=== PATIENT | female | born 1960 | race Caucasian/White ===

== ENCOUNTER → 2024-09-04 | Outpatient (CLI) | payer BC, SELFPAY ==
[2024-09-04 16:48] LABS: Glucose,Fasting 96 mg/dL (74-106)
== END | disposition home or self-care (01) ==
LOC: COPL 14:41
PROVIDERS: PCP Family Medicine; Referring Provider Ophthalmology; Visit Provider Ophthalmology
DX: Z01.818 Encounter for other preprocedural examination (principal)
CPT/HCPCS: 36415; 82947

== ENCOUNTER → 2024-09-28 | Outpatient (CLI) | payer BC, SELFPAY ==
[2024-09-28 16:22] LABS: Collection Type, Urine Clean Catch
[2024-09-28 17:51] LABS: Bilirubin,Urine Negative (Negative); Blood,Urine Trace (Negative); Clarity,Urine Clear (Clear/Hazy); Color,Urine Colorless (Lt Yel-Yel); Glucose, Urine Negative (Negative); Ketones,Urine Negative (Negative); Leukocyte Esterase,Urine Negative (Negative); Nitrite,Urine Negative (Negative); Protein,Urine Negative (Neg - Trace); RBC,Urine < 1 /hpf (0-3); Specific Gravity,Urine 1.006 (1.001-1.035); Squamous Epithelial Cell,Urine 1 /hpf (0-5); Urobilinogen,Urine Negative mg/dL (0.0-1.0); WBC,Urine 1 /hpf (0-5)
== END | disposition home or self-care (01) ==
LOC: SLDO 15:47
PROVIDERS: PCP Nurse Practitioner Family; Referring Provider Nurse Practitioner Family; Visit Provider Nurse Practitioner Family
DX: N39.0 Urinary tract infection, site not specified (principal)
CPT/HCPCS: 81001; 87086

== ENCOUNTER 2024-09-29 13:21 | Emergency (ER) | payer BC, SELFPAY ==
[2024-09-29 14:15] VITALS: BP 151/78; PULSE 81; RESP 19; TEMP 36.3; O2SAT 98; BMI 31.7
--- NOTE | 2024-09-29 14:23 | EKG_ITS ---
[facility] Test Date: 2024-09-29 Pat Name: NERY GALARZA Department: Room: - Gender: Female It Director: : 1960 Requested By: Fernando Dixon Order Number: [id number] Reading MD: Fernando Dixon Measurements Intervals [place] Rate: 75 P: 68 WV: 148 QRS: 12 QRSD: 70 T: 59 QT: 376 QTc: 421 Interpretive Statements SINUS RHYTHM SEPTAL MYOCARDIAL INFARCTION , PROBABLY OLD [40+ ms Q WAVE IN V1/V2] Compared to ECG 07/21/2022 11:54:33 No significant changes /store/S0/[id number].pdf
--- NOTE | 2024-09-29 14:24 | XR_ITS ---
Examination: CT abdomen with intravenous contrast CT pelvis with intravenous contrast 2-D coronal reconstructions 2-D sagittal reconstructions Date and time of exam:September 29, 2024 1711 hrs. Comparison February 12, 2022 Indications: Right lower abdominal pain today. CTDI: vol (mGy) 12.8 DLP: (mGycm) 743 Technique: Multiple axial sections of the abdomen and pelvis have been obtained. 64 slice high-resolution scanner used. 3 mm axial sections have been obtained, post intravenous injection 60 cc [id number] 2-D sagittal, coronal reconstructions obtained. Low dose protocols were performed. One or more of the following dose reduction techniques were used; automated exposure control, adjustment of the mA and/or KV according to patient size, use of iterative reconstruction technique. Findings: No focal liver or splenic lesions No gallstones No pancreatic mass Aorta normal size Moderate hydronephrosis right hydroureter secondary to 7 mm, 5 mm right ureterovesical junction calculi Minimal left hydronephrosis Aorta normal size Normal appendix No bowel obstruction No diverticulitis Retroverted uterus No adnexal mass No bladder mass Lumbar fusion L2-L5 with satisfactory alignment Impression: Moderate right hydronephrosis secondary to 7 mm and 5 mm distal right ureterovesical junction calculus
--- NOTE | 2024-09-29 14:25 | PD.EDABDPN ---
ED Abdominal Pain RME/HPI General Chief Complaint: Abdominal Pain Stated complaint: Abdominal pain X 3 days, vomiting today Time seen by provider: 09/29/24 13:24 Arrival date/time: 09/29/24 13:21 RME / HPI RME / HPI narrative: 63-year-old female patient with significant history of hypertension diabetes mellitus, came in for evaluation regarding right lower quadrant pain. Onset of symptoms for the last 2 days as sudden onset of right lower quadrant pain, associated with nausea and vomiting,. Patient denies any diarrhea or constipation. Denies any dysuria. Patient was seen by PCP, and was given Macrobid for possible UTI. Was also given Hawthorne which the patient took and only afforded mild relief. Denies any other complaints. Related Data Home Medications ?Medication ?Instructions ?Recorded ?Confirmed alprazolam 0.5 mg tablet (Xanax) 0.5 mg PO QDAY 03/20/22 03/20/22 amlodipine 5 mg tablet 1 tab PO DAILY 03/20/22 03/20/22 clonazepam 0.5 mg tablet 10 mg PO QDAY 03/20/22 03/20/22 conj estrogen-medroxyprogesterone 1 tab PO QDAY 03/20/22 03/20/22 0.45 mg-1.5 mg tablet (Prempro) diphenhydramine HCl 25 mg capsule 25 mg PO DAILY 03/20/22 03/20/22 (Benadryl) duloxetine 60 mg capsule,delayed 60 mg PO QDAY 03/20/22 03/20/22 release (Cymbalta) fluticasone propionate 50 50 mcg intranasal DAILY 03/20/22 03/20/22 mcg/actuation nasal spray,suspension ibuprofen 800 mg tablet 800 mg PO Q8H PRN Pain 03/20/22 03/20/22 levothyroxine 50 mcg tablet 50 mcg PO QDAY 03/20/22 03/20/22 metformin 500 mg tablet 500 mg PO QDAY 03/20/22 03/20/22 metoprolol succinate 50 mg 50 mg PO QDAY 03/20/22 03/20/22 tablet,extended release 24 hr omeprazole 20 mg delayed 20 mg PO QDAY 03/20/22 03/20/22 release,disintegrating tablet semaglutide 1 mg/dose (2 mg/1.5 1 mg subcut QWEEK 03/20/22 03/20/22 mL) subcutaneous pen injector (Ozempic) simvastatin 20 mg tablet 20 mg PO QDAY 03/20/22 03/20/22 telmisartan 80 mg tablet 80 mg PO QDAY 03/20/22 03/20/22 tramadol 50 mg tablet 50 mg PO QDAY 03/20/22 03/20/22 Previous Rx's ?Medication ?Instructions ?Recorded ketorolac 10 mg tablet 10 mg PO Q6H PRN pain 5 days #20 09/29/24 tabs tamsulosin 0.4 mg capsule (Flomax) 0.4 mg PO QDAY #14 caps 09/29/24 Allergies Allergy/AdvReac Type Severity Reaction Status Date / Time Penicillins Allergy Severe RASH / Verified 09/29/24 13:27 SWELLING Review of Systems Review of Systems Narrative Review of Systems: Review of system reviewed and within normal limits except mentioned in HPI ED Exam Narrative Physical exam: VITAL SIGNS: Reviewed. GENERAL APPEARANCE: Alert and interactive, follows commands, no acute distress, HEAD AND FACE: Non-traumatic. ENT: PERRL, pink conjunctivitis, eyelid no trauma, Mucous membrane moist. NECK: Supple, nontender, no nuchal rigidity. CHEST: No tenderness, no crepitus, no paradoxical movement, no retractions. LUNGS: Clear, well ventilated, symmetric, no rales, no wheezing, no ronchi, no stridor, good breath sounds bilaterally. HEART: Regular rate, regular rhythm, no murmur, no gallops. ABDOMEN: Soft, positive bowel sounds, nondistended, no guarding, right lower quadrant tenderness, no rebound, no masses, RECTAL: Deferred. GENITAL: Deferred. NEUROLOGICAL: Gross motor function intact sensory function intact, Appropriate for age. MUSCULOSKELETAL: low back nontender, full range of motion. EXTREMITIES: Nontender, full range of motion. SKIN: Color pink, dry, no rash, no lacerations, no abrasions, no contusions. LYMPHATICS: Deferred. Course Quality Measures none Orders Category Date Time Status CT Screening NOW Care 09/29/24 14:24 Active EKG (ED ONLY) *Do not use* NOW Care 09/29/24 14:[address] abdomen pelvis w con Stat Exams 09/29/24 14:24 Completed EKG (ED Only) Stat Exams 09/29/24 14:23 Draft CBC Stat Lab 09/29/24 15:55 Completed Comprehensive Metabolic Panel Stat Lab 09/29/24 15:55 Completed Lipase Stat Lab 09/29/24 15:55 Completed Partial Thromboplastin Time Stat Lab 09/29/24 15:55 Completed Prothrombin Time with INR Stat Lab 09/29/24 15:55 Completed UA [Urinalysis] Stat Lab 09/29/24 14:28 Completed Ketorolac Inj [Toradol Inj] Med 09/29/24 17:38 Discontinued 30 mg IVP X1 ONE Ketorolac Inj [Toradol Inj] Med 09/29/24 19:04 Discontinued 30 mg IVP X1 ONE Morphine Inj Med 09/29/24 14:23 Discontinued 4 mg IVP X1 ONE Ondansetron Inj [Zofran Inj] Med 09/29/24 14:23 Discontinued 4 mg IV X1 ONE Sodium Chloride 0.9% 1000 ml [Ns] 1,000 ml Med 09/29/24 14:24 Discontinued IV 999 mls/hr Sodium Chloride 0.9% 1000 ml [Ns] 1,000 ml Med 09/29/24 18:51 Active IV 999 mls/hr Vital Signs Vital signs: Vital Signs Temperature 97.4 F 09/29/24 14:15 Pulse Rate 81 09/29/24 14:15 Respiratory Rate 19 09/29/24 14:15 Blood Pressure 151/78 H 09/29/24 14:15 Pulse Oximetry (%) 98 09/29/24 14:15 Oxygen Delivery Method Room Air 09/29/24 14:15 Abdominal Pain MDM MDM Narrative MDM Narrative:: 63-year-old female patient with significant history of hypertension diabetes mellitus, came in for evaluation regarding right lower quadrant pain. Onset of symptoms for the last 2 days as sudden onset of right lower quadrant pain, associated with nausea and vomiting,. Patient denies any diarrhea or constipation. Denies any dysuria. Patient was seen by PCP, and was given Macrobid for possible UTI. Was also given Hawthorne which the patient took and only afforded mild relief. Denies any other complaints. Laboratory workup is significant for blood sugar 181, urinalysis no UTI except for hematuria., CBC no leukocytosis, creatinine is normal. CT scan of the abdomen pelvis showed Moderate right hydronephrosis secondary to 7 mm and 5 mm distal right ureterovesical junction calculus Results discussed with the patient and family, and plan of care discussed with them. Patient received 2 L of IV fluids, IV morphine and IV Toradol with complete resolution of symptoms. Patient is pain-free prior to discharge. Patient was advised to return to emergency room and close follow-up also with PCP for referral to urologist. Patient data External records reviewed:: None Clinical information provided by:: patient and family Social determinants that could affect healthcare access:: none Patient has the following chronic illnesses:: Hypertension How is presenting disease/condition affected by chronic disease/condition?: uneffected by Evaluation data The following diagnostics were reviewed and interpreted by me:: lab results and radiology exam(s) Lab and/or radiology exams considered but not ordered:: None Interpretation Summary: See results in MDM Medications / Prescriptions Medications or Prescriptions considered but not ordered:: None Medication administrations:: Medication Administration History Sodium Chloride (Ns) 1,000 mls @ 999 mls/hr IV .Q1H1M ONE Stop: 09/29/24 19:51 Last Admin: 09/29/24 18:54 Dose: 999 mls/hr Documented By: ED Discontinued Medications Sodium Chloride (Ns) 1,000 mls @ 999 mls/hr IV .Q1H1M ONE Stop: 09/29/24 15:24 Last Infusion: 09/29/24 17:10 Dose: Infused Documented By: Admin: 09/29/24 16:09 Dose: 999 mls/hr Documented By: Ketorolac Tromethamine (Ketorolac Inj 30 Mg/Ml Vial) 30 mg IVP X1 ONE Stop: 09/29/24 17:39 Last Admin: 09/29/24 18:40 Dose: 30 mg Documented By: ED Ketorolac Tromethamine (Ketorolac Inj 30 Mg/Ml Vial) 30 mg IVP X1 ONE Stop: 09/29/24 19:05 Morphine Sulfate (Morphine Sulf Inj 10 Mg/Ml Vial) 4 mg IVP X1 ONE Stop: 09/29/24 14:24 Last Admin: 09/29/24 16:57 Dose: 4 mg Documented By: ED Ondansetron HCl (Ondansetron Inj 2 Mg/Ml Inj 2 Ml) 4 mg IV X1 ONE; Protocol Stop: 09/29/24 14:24 Last Admin: 09/29/24 16:54 Dose: 4 mg Documented By: ED Morphine Zofran Toradol IV fluids Consultations Consultation(s) initiated? (list below): No Diagnosis Differential diagnosis abdominal pain: abdominal pain, acute appendicitis and calculus of kidney Most likely diagnosis given after review of the tests above:: Ureterolithiasis Admission Indicated Admission indicated?: not indicated Admission Request Was there a request for admission?: No Disposition Plan Disposition Plan: Discharge Discharge Attestation Discharge Attestation: The patient and all family members were given an opportunity to ask questions and understood the discharge instructions. Discharge instructions specifically effects, indications for sooner follow up or return to the emergency department, and the expected course of current diagnosis. Patient condition: Stable Discharge Plan Plan Patient Disposition: HOME (Self Care) Disposition Comment: Stable Prescriptions/Referrals Prescriptions/Med Rec: New ketorolac 10 mg tablet 10 mg PO Q6H PRN (Reason: pain) 5 Days Qty: 20 0RF tamsulosin [Flomax] 0.4 mg capsule 0.4 mg PO QDAY Qty: 14 0RF No Action metformin 500 mg Tablet 500 mg PO QDAY ibuprofen 800 mg Tablet 800 mg PO Q8H PRN (Reason: Pain) metoprolol succinate 50 mg Tablet Extended Release 24 Hr 50 mg PO QDAY clonazepam 0.5 mg Tablet 10 mg PO QDAY amlodipine 5 mg tablet 1 tab PO DAILY tramadol 50 mg Tablet 50 mg PO QDAY alprazolam [Xanax] 0.5 mg Tablet 0.5 mg PO QDAY levothyroxine 50 mcg Tablet 50 mcg PO QDAY simvastatin 20 mg Tablet 20 mg PO QDAY diphenhydramine HCl [Benadryl] 25 mg Capsule 25 mg PO DAILY telmisartan 80 mg Tablet 80 mg PO QDAY fluticasone propionate 50 mcg/actuation spray,suspension 50 mcg INTRANASAL DAILY Prempro 0.45-1.5 mg Tablet 1 tab PO QDAY duloxetine [Cymbalta] 60 mg Capsule,Delayed Release(Dr/Ec) 60 mg PO QDAY Ozempic 1 mg/dose (2 mg/1.5 mL) Pen Injector 1 mg SUBCUT QWEEK omeprazole 20 mg Tablet,Disintegrat, Delay Rel 20 mg PO QDAY Problem List Clinical Impression: Ureterolithiasis Patient/Caregiver Discharge Instructions Discharge Activity: activity as tolerated Education Materials: ED Kidney Stone w/ Colic Additional Instructions: Thank you for the opportunity for serving you today. You are stable for discharged . You are advised to: Follow-up with your PCP in 1 to 2 days and asked for referral to urologist Return to ED for worsening of symptoms Increase oral fluids Take medication as prescribed Print Language: French Stand Alone Forms: Kaylyn Award Info., Patient Portal Info Letter PA/FUNERAL COUNSELOR Supervising Physician PA/MICHELLE Supervising Physician: MD franny
[2024-09-29 14:39] LABS: Collection Type, Urine Clean Catch
[2024-09-29 14:54] LABS: Bilirubin,Urine Negative (Negative); Blood,Urine 3+ (Negative); Calcium Oxalate Crystals,Urine 2+; Clarity,Urine Turbid (Clear/Hazy); Color,Urine Yellow (Lt Yel-Yel); Glucose, Urine Trace (Negative); Hyaline Casts,Urine 4 /hpf (0-1); Ketones,Urine 1+ (Negative); Leukocyte Esterase,Urine Negative (Negative); Nitrite,Urine Negative (Negative); PH,Urine 5.5 (5.0-7.0); Protein,Urine 1+ (Neg - Trace); RBC,Urine 122 /hpf (0-3); Specific Gravity,Urine 1.026 (1.001-1.035); Squamous Epithelial Cell,Urine 5 /hpf (0-5); Urobilinogen,Urine Negative mg/dL (0.0-1.0); WBC,Urine 7 /hpf (0-5)
[2024-09-29] MEDS: SODIUM CHLORIDE 0.9% 1000 ML 1,000 ML 999 ML IV ×2 (16:09→18:54)
[2024-09-29 16:26] LABS: Partial Thromboplastin Time 23.4 Seconds (22.0-36.0); Prothrombin Time 10.8 Seconds (9.0-12.2)
[2024-09-29 16:31] LABS: Basophils % (Auto) 0 % (0-2.5); Eosinophils % (Auto) 0 % (0-10); Hematocrit 38.9 % (36.0-46.0); Hemoglobin 14.2 g/dL (12.0-16.0); Immature Granulocytes % (Auto) 0 % (0-0); Immature Granulocytes Auto 0.04 Thou/mm3 (0.00-0.00); Lymphocytes # (Auto) 0.8 Thou/mm3 (1.0-4.8); Lymphocytes % (Auto) 7 % (10-50); Mean Corpuscular HGB Conc 36.5 g/dl (31.0-37.0); Mean Corpuscular Hemoglobin 31.2 pg (25.0-35.0); Mean Corpuscular Volume 86 fL (80-100); Monocytes # (Auto) 0.5 Thou/mm3 (0.0-0.8); Monocytes % (Auto) 5 % (0-12); Neutrophils # (Auto) 9.5 Thou/mm3 (1.8-7.7); Neutrophils % (Auto) 88 % (37-80); Nucleated Red Blood Cell % 0 /100 WBC (0); Platelet Count 303 Thou/mm3 (140-440); RDW Standard Deviation 40.1 fL (36.4-46.3); Red Blood Count 4.55 Miln/mm3 (4.00-5.20); White Blood Count 10.9 Thou/mm3 (3.6-11.0)
[2024-09-29 16:49] LABS: Alanine Aminotransferase 14 U/L (10-49); Albumin, Serum 4.8 gm/dL (3.4-4.8); Albumin/Globulin Ratio 2.1 (1.2-2.2); Alkaline Phosphatase 80 U/L (46-116); Anion Gap 12 (7-16); Aspartate Amino Transferase 14 U/L (0-34); BUN/Creatinine Ratio 18 Ratio (12-20); Bilirubin,Total 0.6 mg/dL (0.3-1.2); Blood Urea Nitrogen 14 mg/dL (9-23); Calcium 10.2 mg/dL (8.3-10.6); Calcium (Corrected) 10.2 mg/dL (8.5-10.1); Carbon Dioxide 22.1 mMol/L (20.0-31.0); Chloride 106 mMol/L (98-107); Creatinine (Component) 0.8 mg/dL (0.6-1.3); Estimated Creatinine Clearance 86.7 mL/min (>60); Globulin 2.3 gm/dL (2.3-3.5); Glucose 181 mg/dL (74-106); Lipase 34 U/L (12-53); Osmolality,Calculated 284 (275-295); Potassium 3.4 mMol/L (3.4-5.1); Sodium 140 mMol/L (136-145); Total Protein 7.1 gm/dL (5.7-8.2); eGFR > 60 See Note
[2024-09-29] MEDS: ONDANSETRON INJ 2 MG/ML INJ 2 ML 4 MG IV (16:54)
[2024-09-29] MEDS: MORPHINE SULF INJ 10 MG/ML VIAL 4 MG IVP (16:57)
[2024-09-29] MEDS: KETOROLAC INJ 30 MG/ML VIAL IVP ×2 (18:40→19:43)
[2024-09-29 19:51] VITALS: PULSE 78; RESP 16; TEMP 36.6; O2SAT 99
== END 2024-09-29 19:53 | disposition home or self-care (01) ==
PROVIDERS: Nurse Practitioner Family; Emergency Provider Emergency Medicine; PCP Family Medicine
DX: N13.2 Hydronephrosis with renal and ureteral calculous obstruction (principal); I10 Essential (primary) hypertension; R94.31 Abnormal electrocardiogram [ECG] [EKG]
CPT/HCPCS: 36415; 74177; 80053; 81001; 83690; 85025; 85610; 85730; 87634; 93005; 96360; 96361; 96374; 96375; 96376; 99285; A4649; J1885; J2270; J2405; J7030; Q9967

== ENCOUNTER → 2025-05-09 | Outpatient (CLI) | payer BC, SELFPAY ==
[2025-05-09 09:26] LABS: Basophils # (Auto) 0.1 Thou/mm3 (0.0-0.2); Basophils % (Auto) 1 % (0-2.5); Eosinophils # (Auto) 0.6 Thou/mm3 (0.0-0.5); Eosinophils % (Auto) 12 % (0-10); Hematocrit 38.1 % (36.0-46.0); Hemoglobin 13.5 g/dL (12.0-16.0); Immature Granulocytes Auto 0.01 Thou/mm3 (0.00-0.00); Lymphocytes # (Auto) 2.1 Thou/mm3 (1.0-4.8); Lymphocytes % (Auto) 39 % (10-50); Mean Corpuscular HGB Conc 35.4 g/dl (31.0-37.0); Mean Corpuscular Hemoglobin 31.6 pg (25.0-35.0); Mean Corpuscular Volume 89 fL (80-100); Monocytes # (Auto) 0.5 Thou/mm3 (0.0-0.8); Monocytes % (Auto) 9 % (0-12); Neutrophils # (Auto) 2.2 Thou/mm3 (1.8-7.7); Neutrophils % (Auto) 40 % (37-80); Nucleated Red Blood Cell # 0.00 Thou/mm3 (0.00-0.00); Nucleated Red Blood Cell % 0 /100 WBC (0); Platelet Count 261 Thou/mm3 (140-440); RDW Standard Deviation 43.4 fL (36.4-46.3); Red Blood Count 4.27 Miln/mm3 (4.00-5.20); White Blood Count 5.5 Thou/mm3 (3.6-11.0)
[2025-05-09 09:38] LABS: Glucose Estimated Average 108 mg/dL (80-131); Hemoglobin A1C 5.4 % Hgb (4.8-6.0)
--- NOTE | 2025-05-09 09:38 | XR_ITS ---
Examination: Knee, left , 3 views Technique: Knee AP, lateral, oblique 3 views Date and time of exam: May 09, 2025, 0950 hours INDICATIONS: Left knee pain 20 years FINDINGS: Significant osteopenia. Advanced tricompartment osteoarthritis. No fracture or dislocation IMPRESSION: Advanced left knee tricompartment osteoarthritis
[2025-05-09 09:50] LABS: T4 (Thyroxine) 8.4 mcg/dL (4.5-10.9)
[2025-05-09 09:56] LABS: Alanine Aminotransferase 9 U/L (10-49); Albumin, Serum 4.3 gm/dL (3.4-4.8); Albumin/Globulin Ratio 2.3 (1.2-2.2); Alkaline Phosphatase 64 U/L (46-116); Anion Gap 9 (7-16); Aspartate Amino Transferase 15 U/L (0-34); BUN/Creatinine Ratio 14 Ratio (12-20); Bilirubin,Total 0.8 mg/dL (0.3-1.2); Blood Urea Nitrogen 11 mg/dL (9-23); Calcium 10.1 mg/dL (8.3-10.6); Calcium (Corrected) 10.1 mg/dL (8.5-10.1); Carbon Dioxide 26.5 mMol/L (20.0-31.0); Cardiac Risk Estimate 2.5 RATIO (3.7-5.6); Chloride 107 mMol/L (98-107); Cholesterol 147 mg/dL (132-200); Creatinine (Component) 0.8 mg/dL (0.6-1.3); Globulin 1.9 gm/dL (2.3-3.5); Glucose 105 mg/dL (74-106); HDL Cholesterol 60 mg/dL (40-60); LDL Cholesterol,Calculated 66 mg/dL (0-130); Osmolality,Calculated 282 (275-295); Potassium 3.5 mMol/L (3.4-5.1); Sodium 142 mMol/L (136-145); Thyroid Stimulating Hormone 2.02 uIU/mL (0.55-4.78); Total Protein 6.2 gm/dL (5.7-8.2); Triglycerides 104 mg/dL (30-150); eGFR > 60 See Note
== END | disposition home or self-care (01) ==
PROVIDERS: PCP Family Medicine; Referring Provider Family Medicine; Visit Provider Radiology Diagnostic Radiology
DX: M17.12 Unilateral primary osteoarthritis, left knee (principal); E11.65 Type 2 diabetes mellitus with hyperglycemia; N95.8 Other specified menopausal and perimenopausal disorders; I10 Essential (primary) hypertension; E03.9 Hypothyroidism, unspecified
CPT/HCPCS: 36415; 73562; 80053; 80061; 83036; 84436; 84443; 85025

== ENCOUNTER → 2025-05-17 | Outpatient (CLI) | payer BC, SELFPAY ==
--- NOTE | 2025-05-17 15:22 | XR_ITS ---
Examination: Breast ultrasound, unilateral, left complete Date and time of exam: May 17, 2025, 1539 hours INDICATIONS: Bloody left breast discharge 3 weeks, family history breast cancer Technique: Real-time cooper scale ultrasonographic imaging performed left breast including all 4 quadrants as well as nipple retroareolar and axillary region. Findings: 12:00 nodule circumscribed 4 x 4 millimeter 2:00 nodule circumscribed 8 x 7 mm 2:00 cyst 5 x 5 mm 5:00 nodule lobular margins 5 x 5 mm Dilated ducts IMPRESSION: BI-RADS Category 0: Incomplete: Need additional imaging evaluation Left breast ductogram follow-up recommended given the bloody discharge
--- NOTE | 2025-05-17 15:39 | XR_ITS ---
EXAMINATION: Cervical spine, 5 views Technique: Cervical spine AP, AP odontoid, lateral, bilateral obliques, 5 views Exam date and time: May 17, 2025, 1602 hours INDICATIONS: Neck pain years getting worse FINDINGS: Prominent osteopenia Advanced degenerative disc disease C5-C6, C6-C7 No cervical fracture Intact odontoid Mild to moderate bilateral neural foraminal stenosis C5-C6, C6-C7, worse on the left side IMPRESSION: Advanced degenerative disc disease C5-C6, C6-C7 with bilateral neural foraminal stenosis as above
== END | disposition home or self-care (01) ==
PROVIDERS: PCP Family Medicine; Referring Provider Family Medicine; Visit Provider Family Medicine
DX: M50.322 Other cervical disc degeneration at C5-C6 level (principal); M48.02 Spinal stenosis, cervical region; R92.8 Other abnormal and inconclusive findings on diagnostic imaging of breast
CPT/HCPCS: 72050; 76641

== ENCOUNTER → 2025-06-07 | Outpatient (CLI) | payer BC, SELFPAY ==
--- NOTE | 2025-06-07 08:30 | XR_ITS ---
EXAMINATION: Left breast ductogram Date and time: June 07, 2025, 0946 hours INDICATIONS: History bloody discharge beginning 2 weeks ago TECHNIQUE: Unsuccessful cannulation left breast ducts IMPRESSION: Unsuccessful cannulation left breast ducts If bloody discharge persists, recommend repeat attempt at ductogram
== END | disposition home or self-care (01) ==
LOC: CDIM 08:46
PROVIDERS: Referring Provider Family Medicine; Visit Provider Family Medicine
DX: N64.52 Nipple discharge (principal); Z53.8 Procedure and treatment not carried out for other reasons
CPT/HCPCS: 77053; Q9967

== ENCOUNTER → 2025-06-19 | Outpatient (CLI) | payer BC, SELFPAY ==
--- NOTE | 2025-06-19 14:15 | XR_ITS ---
Examination: Screening digital mammography, bilateral Computer aided detection 3-D breast Tomosynthesis, bilateral Date and time of exam: 06/19/2025, 2:44 p.m. Comparisons: July 2022 through May 2025 Indications: Screening, left bloody nipple discharge Technique: Nonmagnified MLO, CC views of the breasts to been obtained, reconstructed from 3-D Tomosynthesis images. R2 computer aided detection program utilized for evaluation of suspicious masses and/or abnormal calcifications. 3-D Tomosynthesis images obtained. Technologist: Findings: The breasts are heterogeneously dense, which may obscure small masses. No evidence of abnormal masses or suspicious calcifications. Impression: No focal abnormality seen screening exam. Left bloody nipple discharge warrants further evaluation. Bilateral contrast-enhanced breast MRI is recommended. BI-RADS category 0: Incomplete assassment; need additional imaging evaluation
== END | disposition home or self-care (01) ==
LOC: CDIM 14:26
PROVIDERS: Referring Provider Family Medicine; Visit Provider Family Medicine
DX: Z12.31 Encounter for screening mammogram for malignant neoplasm of breast (principal)
CPT/HCPCS: 77063; 77067

== ENCOUNTER 2025-07-03 08:35 | Outpatient (AMB) | payer BC, SELFPAY ==
[2025-07-03 08:49] VITALS: BP 110/74; PULSE 77; RESP 18; TEMP 36.4; O2SAT 98; BMI 30.2
--- NOTE | 2025-07-03 08:49 | PD.ORTHCLVIS ---
Vital signs 07/03/25 08:49 Height 1.73 m Height Method Measured Weight 90.038 kg Weight Measurement Method Standing Scale BMI 30.2 BP 110/74 Blood Pressure Source Automatic Cuff Blood Pressure Location Left Upper Arm Position Sitting Respiration 18 Pulse 77 Pulse Source Monitor Temp 97.6 F Temp Source Temporal Artery Scan Pulse Oximetry (%) 98 Oxygen Delivery Method Room Air Med/Allergies Allergies & Medications Allergies Penicillins Allergy (Severe, Verified 07/03/25 08:50) RASH / SWELLING Medication Reconciliation alprazolam 0.5 mg tablet (Xanax) 0.5 mg PO QDAY 03/20/22 [History Confirmed 07/03/25] amlodipine 5 mg tablet 1 tab PO DAILY 03/20/22 [History Confirmed 07/03/25] clonazepam 0.5 mg tablet 10 mg PO QDAY 03/20/22 [History Confirmed 07/03/25] conj estrogen-medroxyprogesterone 0.45 mg-1.5 mg tablet (Prempro) 1 tab PO QDAY 03/20/22 [History Confirmed 07/03/25] diphenhydramine HCl 25 mg capsule (Benadryl) 25 mg PO DAILY 03/20/22 [History Confirmed 07/03/25] duloxetine 60 mg capsule,delayed release (Cymbalta) 60 mg PO QDAY 03/20/22 [History Confirmed 07/03/25] fluticasone propionate 50 mcg/actuation nasal spray,suspension 50 mcg intranasal DAILY 03/20/22 [History Confirmed 07/03/25] ibuprofen 800 mg tablet 800 mg PO Q8H PRN Pain 03/20/22 [History Confirmed 07/03/25] metoprolol succinate 50 mg tablet,extended release 24 hr 50 mg PO QDAY 03/20/22 [History Confirmed 07/03/25] omeprazole 20 mg delayed release,disintegrating tablet 20 mg PO QDAY 03/20/22 [History Confirmed 07/03/25] semaglutide 1 mg/dose (2 mg/1.5 mL) subcutaneous pen injector (Ozempic) 1 mg subcut QWEEK 03/20/22 [History Confirmed 07/03/25] simvastatin 20 mg tablet 20 mg PO QDAY 03/20/22 [History Confirmed 07/03/25] telmisartan 80 mg tablet 80 mg PO QDAY 03/20/22 [History Confirmed 07/03/25] tramadol 50 mg tablet 50 mg PO QDAY 03/20/22 [History Confirmed 07/03/25] Exam Exam Patient is in no acute distress and is cooperative with the examination today. Breathing is nonlabored. Patient has a normal mood and affect. Bilateral extremities were evaluated and demonstrates sensation intact to light touch. Palpable pedal pulses are present. No significant edema is present. Bilateral hips were examined. The patient has no pain with log roll of the hips. Internal rotation to 30 degrees and external rotation to 30 degrees is painless. Negative FADIR. Right knee was examined today. The right knee is in reasonable alignment. Range of motion from 0-120 degrees. Knee is stable to varus and valgus as well as AP translation with <5mm. Patient has a negative McMurrays. There is no pain with patellofemoral compression and no crepitus noted. The knee is nontender to palpation. Left knee was examined today. The left knee is in varus alignment. Range of motion from 0-115 degrees. Knee is stable to varus and valgus as well as AP translation with <5mm. Patient has a negative McMurrays. There is no pain with patellofemoral compression and no crepitus noted. The knee is tender to palpation medially. X-rays of the left knee demonstrates complete joint space loss medially and osteophytes. These are nonweightbearing films Assessment and Plan Problem List (1) Arthritis of knee, left: Status: Acute Plan: ASSESSMENT AND PLAN 1. Left knee pain: The patient has a history of meniscus tear repairs and has been experiencing worsening pain over the past 8 months. Recent x-rays indicate severe [id number] arthritis in the left knee. She has not had recent injections or physical therapy within the last 8 months. Anti-inflammatory medications are still providing some relief. Treatment options discussed include continuing with current medications and injections or considering knee replacement surgery. A weightbearing x-ray of both knees will be ordered to assess the severity of the condition further. A weightbearing x-ray of both knees will be ordered to better assess the severity of the condition. Depending on the results, treatment options include continuing with current medications and injections or considering knee replacement surgery. The patient was informed that cortisone injections might be more predictable in advanced arthritis compared to gel injections. The risks and benefits of surgery versus conservative management were discussed. The patient will be scheduled for a follow-up appointment to review the x-ray results and make a more informed decision regarding her treatment plan. Follow-up: The patient will follow up after the x-rays are completed to discuss the next steps. Office Procedures GNS Level of Care Nursing/Assessment Patient Status: Initial/New Patient Nursing Assessment/Reassesment: Medication Reconciliation, Update PMH in EMR and Vital Signs Coordination of Care: Complex Care and Chronic Disease 1-5, Education Complex Pt/Fam, Consent,records obtained, informed consent, Lab and Imaging orders, Results/Orders obtained and Staff clarify orders New Patient Charge New Patient Point Assignment: 1109 New Patient Point Charge: PHARMACY SALES ASSISTANT Level 3 ([id number]) MA Intake Visit Data Collection New Patient or Established: Established Patient (seen at [facility] within 3 years) Reason for Visit:: LEFT KNEE PAIN Seen by Clinical Staff ONLY (RN/MA): No Outside Sales Executive Required: No PCP or OBGYN visit in last 3 months: Yes Hx Now: No Do You Feel Safe at Home: Yes Authorities Contacted: N/A Questionairres Past Medical History Past Medical History Have you ever been diagnosed with any of the following: Neurological Problems Cerebrovascular Accident (CVA): No Transient Ischemic Attacks (TIA): No Dementia: No Alzheimer's Disease: No Parkinson's Disease: No Brain Tumor: No Meningitis: No Seizures: No Epilepsy: No Multiple Sclerosis: No Cerebral Palsy: No Amyotrophic Lateral Sclerosis (ALS/Marybeth Gehrig's): No Guillain-[place] Syndrome: No Spina Bifida: No Paralysis: No Peripheral Neuropathy: No Ingram's Palsy: No Subdural Hematoma: No Migraine: No Head Trauma: No Spinal Cord Injury: No Traumatic Brain Injury: No Cardiology Problems Myocardial Infarction: No Cardiac Arrhythmia: No Atrial Fibrillation: No Angina: No Heart Murmur: No Coronary Artery Disease: No Atherosclerotic Heart Disease: No Peripheral Vascular Disease: No Hypercholesterolemia: Yes (TAKES MED) Aneurysm: No Congestive Heart Failure: No Congenital Heart Disease: No Valvular Heart Disease: No Rheumatic Fever: No Cardiomyopathy: No Edema: No Pericarditis: No Cellulitis: No Deep Vein Thrombosis: No Hypertension: Yes (TAKES MED) Hypotension: No Varicose Veins: No Respiratory Problems Chronic Obstructive Pulmonary Disease (COPD): No Asthma: No Bronchitis: No Emphysema: No Pneumonia: No Pulmonary Fibrosis: No Tuberculosis: No Pulmonary Embolism: No Pulmonary Edema: No Sleep Apnea: No CPAP Dependent: No Respiratory Aspiration: No Dyspnea: No Orthopnea: No Hx Cough: No Cough: No Wheezing: No Chest Deformities: No Smoking: No Smoking Cessation Counseling: No Smoking Exposure: No Tobacco Use: No Clubbing: No Exposure to Respiratory Irritants: No Intubation: No Stomache/Intestinal Problems Liver Cancer: No Hepatitis: No Cirrhosis: No Pancreatic Cancer: No Pancreatitis: No Celiac Disease: No Gall Bladder Disease: No Gastrointestinal Bleed: No Esophageal Varices: No Briones's Esophagus: No Colitis: No Ulcerative Colitis: No Diverticulitis: No Diverticulosis: No Ulcer: No Colorectal Cancer: No Irritable Bowel: No Crohn's Disease: No Obstructive Bowel: No Hiatal Hernia: No Hemorrhoids: No Gastroesophageal Reflux Disease: Yes Polyps: No Obesity: No Genital/Urinary Problems Chronic Kidney Disease: No Renal Disease: No Kidney Stones: Yes (FOR THIS PROC) Polycystic Kidney Disease: No Neurogenic Bladder: No Inguinal Hernia: No Dialysis: No Reproductive Problems Breast Cancer: No Endometriosis: No Fibroids: No Genital Herpes: No Gonorrhea: No Pelvic Inflammatory Disease: No Polycystic Ovarian Syndrome: No Previous Pregnancies: Yes (X1) Syphilis: No Uterine Prolapse: No Musculoskeletal Problems Muscular Dystrophy: No Myasthenia Gravis: No Marfan's Syndrome: No Bone Cancer: No Arthritis: Yes Rheumatoid Arthritis: No Osteoporosis: No Degenerative Disk Disease: No Gout: No Scoliosis: Yes (MILD) Carpal Tunnel Syndrome: No Fibromyalgia: No Fractures: No Degenerative Joint Disease: No Osteomyelitis: No Poliovirus: No Head,Eye,Nose,Throat Problems Cataracts: No Glaucoma: No Blind: No Retinal Detachment: No Macular Degeneration: No Chronic Ear Infections: No Deafness: No Eye Prosthesis: No Endocrine Problems Diabetes Mellitus Type 1: No Diabetes Mellitus Type 2: Yes Hypoglycemia: No Reena's Syndrome: No White's Disease: No Hyperthyroidism: No Hypothyroidism: Yes Thyroid Cancer: No Parathyroid Disease: No Pituitary Disease: No Systemic Lupus Erythematosus: No Syndrome of Inappropriate Antidiuretic Hormone: No Adrenal Disease: No Graves' Disease: No Blood Problems Anemia: No Leukemia: No Hemophilia: No Thalassemia: No Sickle Cell Disease: No Clotting Problems: No Psychologic Problems Schizophrenia: No Recreational Drug Use: No Bipolar Disorder: No Depression: Yes (TAKES MED) Anxiety: Yes (TAKES MED) Behavior Problems: No Self-Mutilation: No Attention Deficit Disorder: No Attention Deficit Hyperactivity Disorder: No Depression: No Post Traumatic Stress Disorder: Yes Eating Disorder: No Other Problems Hospitalization: No Autoimmune Disease: No Down Syndrome: No Autism: No Developmental Delay: No Cosmetic Surgery: No Shingles: No Falls: No Blood Transfusions: No Blood Transfusion Reaction: No Anesthesia Reactions: No Organ Transplant: No Chemotherapy: No Radiation Therapy: No Hyperbaric Therapy: No MRSA: No VRSA: No Vancomycin-Resistant Enterococci: No Human Immunodeficiency Virus (HIV): No Chicken Pox: No Measles: Yes Mumps: Yes Rubella (Belarusian Measles): No Pertussis: No Klebsiella Pneumoniae Carbapenemase Producing Bacteria: No Clostridium Difficile: No Hepatitis A: No Hepatitis B: No Hepatitis C: No Communicable Disease: No Cancer: No Cervical Cancer: No Lung Cancer: No Ovarian Cancer: No Surgical History Angioplasty: No Appendectomy: No Bariatric Surgery: No Breast Surgery: No Cancer Surgery: No Carotid Endarterectomy: No Cholecystectomy: No Colectomy: No Colostomy: No Coronary Artery Bypass Graft: No Valve Replacement: No Herniorrhaphy: No Total Hip Replacement: No Total Knee Replacement: No Hysterectomy: No Pacemaker: No Sinus Surgery: No Splenectomy: No TAHBSO-Total Abdominal Hysterectomy: No Thyroidectomy: No Ureter Stent: No Subjective Visit Visit for: new patient and knee Immunization / Flu Flu Vaccine in the Last 12 Months: Yes Flu Vaccine Exclusion Criteria: Already Received History of Present Illness Chief complaint: LEFT KNEE PAIN Date of injury / onset of symptoms: 8 MONTHS Personal History Occupation: RETIRED Red flag PMH: none BMI Counceling provided: Yes Additional comments: HISTORY OF PRESENT ILLNESS ILucas, have obtained verbal consent from the patient, to be recorded during this encounter which may include, but not limited to, medical history, examination, treatment plans, and relevant health information.? Patient was informed that recording will be read and reviewed by myself before inclusion in the medical chart. The patient presents today with left knee pain that she has had for years. She has undergone 3 arthroscopic procedures on her left knee for meniscal tears, [address] Ng and 1 by another physician. Her pain worsened approximately 8 months ago. Despite experiencing severe inflammation in the past, which was managed with blistering treatments, she continues to experience significant pain in her left knee, particularly when attempting to rise from a kneeling position, describing a sensation of disconnection. She also reports occasional right knee pain, although it is less severe than the left. Her most recent x-rays were completed here at [place], [facility]. She has not had recent injections or physical therapy within the last 8 months. Her anti-inflammatory medications are still working. She describes her pain as starting in one area and then spreading across the entire front of her knee. She has a history of arthritis in her joints and has undergone multiple surgeries, including a hip replacement. 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 She underwent an EMG test but is uncertain whether it was conducted for her back or leg. Her back pain is currently more limiting than her knee pain. She has received numerous injections over the years, including gel injections, which provided minimal relief. PAST SURGICAL HISTORY: Hip replacement 3 meniscus tear repairs on the left knee Meniscus surgery on both knees Pain Pain level (0-10): 6 Pain location: anterior Pain quality: aching Pain timing: increases with activity and stairs Associated signs & symptoms: stiffness Ambulatory data Ambulatory device: none Treatments Number of previous injections: 0 Improvement with previous injections: No Number of Physical Therapy sessions: 0 Improvement with PT: No Improvement with NSAIDS: yes Review of Systems Review of Systems: All systems negative unless otherwise noted in HPI.
--- NOTE | 2025-07-03 09:06 | XR_ITS ---
EXAMINATION: Bilateral knees 2 views Right lateral knee left lateral knee 2 views Bilateral axial knee single view TECHNIQUE: Bilateral AP knees single view standing, bilateral PA knees single view standing Standing right lateral knee left lateral knee 2 views Bilateral Axuni single view total 5 views Date and time: July 03, 2025, 0911 hours, comparison 05/09/2025 INDICATIONS: Bilateral knee pain several years. FINDINGS: Significant osteopenia. Advanced narrowing medial joint space right knee Moderate osteoarthritis right patellofemoral joint Severe narrowing lateral joint space left knee Advanced narrowing medial joint space left knee and advanced osteoarthritis left patellofemoral joint No fractures IMPRESSION: Advanced narrowing medial joint space right knee Severe left knee tricompartment osteoarthritis
== END 2025-07-03 09:07 | disposition home or self-care (01) ==
LOC: HODSRG 08:35
PROVIDERS: PCP Family Medicine; Referring Provider Family Medicine; Supervising Provider Orthopaedic Surgery Adult Reconstructive Orthopaedic Surgery; Visit Provider Orthopaedic Surgery Adult Reconstructive Orthopaedic Surgery
DX: M25.562 Pain in left knee (principal); M17.12 Unilateral primary osteoarthritis, left knee; M25.861 Other specified joint disorders, right knee
CPT/HCPCS: 73564; 99203; G0463

== ENCOUNTER 2025-07-24 08:37 | Outpatient (AMB) | payer BC, SELFPAY ==
--- NOTE | 2025-07-24 09:15 | ORTHONT_ITS ---
Vital signs 07/24/25 09:17 Height 1.73 m Height Method Stated Weight 89.471 kg Weight Measurement Method Standing Scale BMI 29.9 BP 116/77 Blood Pressure Source Automatic Cuff Blood Pressure Location Left Upper Arm Position Sitting Respiration 18 Pulse 79 Pulse Source Monitor Temp 97.5 F Temp Source Temporal Artery Scan Pulse Oximetry (%) 96 Oxygen Delivery Method Room Air Med/Allergies Allergies & Medications Allergies Penicillins Allergy (Severe, Verified 07/24/25 09:17) RASH / SWELLING Medication Reconciliation alprazolam 0.5 mg tablet (Xanax) 0.5 mg PO QDAY 03/20/22 [History Confirmed 07/24/25] amlodipine 5 mg tablet 1 tab PO DAILY 03/20/22 [History Confirmed 07/24/25] clonazepam 0.5 mg tablet 10 mg PO QDAY 03/20/22 [History Confirmed 07/24/25] conj estrogen-medroxyprogesterone 0.45 mg-1.5 mg tablet (Prempro) 1 tab PO QDAY 03/20/22 [History Confirmed 07/24/25] diphenhydramine HCl 25 mg capsule (Benadryl) 25 mg PO DAILY 03/20/22 [History Confirmed 07/24/25] duloxetine 60 mg capsule,delayed release (Cymbalta) 60 mg PO QDAY 03/20/22 [History Confirmed 07/24/25] fluticasone propionate 50 mcg/actuation nasal spray,suspension 50 mcg intranasal DAILY 03/20/22 [History Confirmed 07/24/25] ibuprofen 800 mg tablet 800 mg PO Q8H PRN Pain 03/20/22 [History Confirmed 07/24/25] metoprolol succinate 50 mg tablet,extended release 24 hr 50 mg PO QDAY 03/20/22 [History Confirmed 07/24/25] omeprazole 20 mg delayed release,disintegrating tablet 20 mg PO QDAY 03/20/22 [History Confirmed 07/24/25] semaglutide 1 mg/dose (2 mg/1.5 mL) subcutaneous pen injector (Ozempic) 1 mg subcut QWEEK 03/20/22 [History Confirmed 07/24/25] simvastatin 20 mg tablet 20 mg PO QDAY 03/20/22 [History Confirmed 07/24/25] telmisartan 80 mg tablet 80 mg PO QDAY 03/20/22 [History Confirmed 07/24/25] tramadol 50 mg tablet 50 mg PO QDAY 03/20/22 [History Confirmed 07/24/25] Exam Exam Patient is in no acute distress and is cooperative with the examination today. Breathing is nonlabored. Patient has a normal mood and affect. Bilateral extremities were evaluated and demonstrates sensation intact to light touch. Palpable pedal pulses are present. No significant edema is present. Bilateral hips were examined. The patient has no pain with log roll of the hips. Internal rotation to 30 degrees and external rotation to 30 degrees is painless. Negative FADIR. Right knee was examined today. The right knee is in reasonable alignment. Range of motion from 0-120 degrees. Knee is stable to varus and valgus as well as AP translation with <5mm. Patient has a negative McMurrays. There is no pain with patellofemoral compression and no crepitus noted. The knee is nontender to palpation. Left knee was examined today. The left knee is in varus alignment. Range of motion from 0-115 degrees. Knee is stable to varus and valgus as well as AP translation with <5mm. Patient has a negative McMurrays. There is no pain with patellofemoral compression and no crepitus noted. The knee is tender to palpation medially. X-rays of the bilateral knees demonstrates complete joint space loss medially and osteophytes. Assessment and Plan Problem List (1) Arthritis of knee, left: Status: Acute Plan: ASSESSMENT AND PLAN 1. Left knee pain: The patient has a history of meniscus tear repairs and has been experiencing worsening pain over the past 8 months. She has [id number] arthritis of the left knee and would like a cortisone injection today of both knees Plan Recommend knee cortisone injection as patient would like to proceed with conservative treatment at this time. The risks and benefits of the procedure were reviewed with the patient and patient gave verbal consent to continue with the procedure. Procedure: performed by Dr. Wang Using sterile technique the Right knee was thoroughly prepped with alcohol, and approximately 1 cc of Depo-Medrol 80mg/mL and 4 cc of 0.2% ropivacaine was injected without resistance into the medial tibial femoral joint space. The patient tolerated the procedure. Recommend knee cortisone injection as patient would like to proceed with conservative treatment at this time. The risks and benefits of the procedure were reviewed with the patient and patient gave verbal consent to continue with the procedure. Procedure: performed by Dr. Wang Using sterile technique the leftknee was thoroughly prepped with alcohol, and approximately 1 cc of Depo- Medrol 80mg/mL and 4 cc of 0.2% ropivacaine was injected without resistance into the medial tibial femoral joint space. The patient tolerated the procedure. Office Procedures GNS Level of Care Nursing/Assessment Patient Status: Established Patient Nursing Assessment/Reassesment: Medication Reconciliation, Update PMH in EMR and Vital Signs Coordination of Care: Complex Care and Chronic Disease 1-5, Education Complex Pt/Fam, Consent,records obtained, informed consent, Results/Orders obtained and Staff clarify orders Established Patient Charge Established Patient Point Assignment: 95 Established Patient Point Charge: EP Level 3 (80-115) Surgical Proc/IM SQ injection Minor Surgical Procedure: Yes (BILATERAL KNEE INJ) Medication Given Medication Given Medication Given: Yes Documented Dose Given: 2 Route: Infiitration Medication Given Medication Given Medication Given: Yes Documented Dose Given: 8 Route: Infiitration Office Meds methylprednisolone acetate 80 mg/mL suspension for injection Performing Provider: Lucas Wang MD Performing Location: [facility] Administered by: Lucas Wang MD on 07/24/25 11:34 Dose Route Admin Location Dispensed Lot Number Expiration Date Pack age [facility] Manager Payer 160 mg intra-articular KNEE 2 mL [id number] 04/14/27 [address]-9 [id number] [facility] ropivacaine (PF) 2 mg/mL (0.2 %) injection solution Performing Provider: Lucas Wang MD Performing Location: [facility] Administered by: Lucas Wang MD on 07/24/25 11:34 Dose Route Admin Location Dispensed Lot Number Expiration Date Pack age [facility] Manager Payer 40 mL Infiltration KNEE 40 mL [id number] 09/14/27 74918-622-10 [id number] [facility] Intake Visit Data Collection New Patient or Established: Established Patient (seen at [facility] within 3 years) Reason for Visit:: LEFT KNEE PAIN Seen by Clinical Staff ONLY (RN/MA): No Contract Paralegal Required: No PCP or OBGYN visit in last 3 months: Yes Hx Now: No Do You Feel Safe at Home: Yes Authorities Contacted: N/A Questionairres Past Medical History Past Medical History Have you ever been diagnosed with any of the following: Neurological Problems Cerebrovascular Accident (CVA): No Transient Ischemic Attacks (TIA): No Dementia: No Alzheimer's Disease: No Parkinson's Disease: No Brain Tumor: No Meningitis: No Seizures: No Epilepsy: No Multiple Sclerosis: No Cerebral Palsy: No Amyotrophic Lateral Sclerosis (ALS/Marybeth Gehrig's): No Guillain-[place] Syndrome: No Spina Bifida: No Paralysis: No Peripheral Neuropathy: No Ingram's Palsy: No Subdural Hematoma: No Migraine: No Head Trauma: No Spinal Cord Injury: No Traumatic Brain Injury: No Cardiology Problems Myocardial Infarction: No Cardiac Arrhythmia: No Atrial Fibrillation: No Angina: No Heart Murmur: No Coronary Artery Disease: No Atherosclerotic Heart Disease: No Peripheral Vascular Disease: No Hypercholesterolemia: Yes (TAKES MED) Aneurysm: No Congestive Heart Failure: No Congenital Heart Disease: No Valvular Heart Disease: No Rheumatic Fever: No Cardiomyopathy: No Edema: No Pericarditis: No Cellulitis: No Deep Vein Thrombosis: No Hypertension: Yes (TAKES MED) Hypotension: No Varicose Veins: No Respiratory Problems Chronic Obstructive Pulmonary Disease (COPD): No Asthma: No Bronchitis: No Emphysema: No Pneumonia: No Pulmonary Fibrosis: No Tuberculosis: No Pulmonary Embolism: No Pulmonary Edema: No Sleep Apnea: No CPAP Dependent: No Respiratory Aspiration: No Dyspnea: No Orthopnea: No Hx Cough: No Cough: No Wheezing: No Chest Deformities: No Smoking: No Smoking Cessation Counseling: No Smoking Exposure: No Tobacco Use: No Clubbing: No Exposure to Respiratory Irritants: No Intubation: No Stomache/Intestinal Problems Liver Cancer: No Hepatitis: No Cirrhosis: No Pancreatic Cancer: No Pancreatitis: No Celiac Disease: No Gall Bladder Disease: No Gastrointestinal Bleed: No Esophageal Varices: No Briones's Esophagus: No Colitis: No Ulcerative Colitis: No Diverticulitis: No Diverticulosis: No Ulcer: No Colorectal Cancer: No Irritable Bowel: No Crohn's Disease: No Obstructive Bowel: No Hiatal Hernia: No Hemorrhoids: No Gastroesophageal Reflux Disease: Yes Polyps: No Obesity: No Genital/Urinary Problems Chronic Kidney Disease: No Renal Disease: No Kidney Stones: Yes (FOR THIS PROC) Polycystic Kidney Disease: No Neurogenic Bladder: No Inguinal Hernia: No Dialysis: No Reproductive Problems Breast Cancer: No Endometriosis: No Fibroids: No Genital Herpes: No Gonorrhea: No Pelvic Inflammatory Disease: No Polycystic Ovarian Syndrome: No Previous Pregnancies: Yes (X1) Syphilis: No Uterine Prolapse: No Musculoskeletal Problems Muscular Dystrophy: No Myasthenia Gravis: No Marfan's Syndrome: No Bone Cancer: No Arthritis: Yes Rheumatoid Arthritis: No Osteoporosis: No Degenerative Disk Disease: No Gout: No Scoliosis: Yes (MILD) Carpal Tunnel Syndrome: No Fibromyalgia: No Fractures: No Degenerative Joint Disease: No Osteomyelitis: No Poliovirus: No Head,Eye,Nose,Throat Problems Cataracts: No Glaucoma: No Blind: No Retinal Detachment: No Macular Degeneration: No Chronic Ear Infections: No Deafness: No Eye Prosthesis: No Endocrine Problems Diabetes Mellitus Type 1: No Diabetes Mellitus Type 2: Yes Hypoglycemia: No Eden's Syndrome: No Rodolfo's Disease: No Hyperthyroidism: No Hypothyroidism: Yes Thyroid Cancer: No Parathyroid Disease: No Pituitary Disease: No Systemic Lupus Erythematosus: No Syndrome of Inappropriate Antidiuretic Hormone: No Adrenal Disease: No Graves' Disease: No Blood Problems Anemia: No Leukemia: No Hemophilia: No Thalassemia: No Sickle Cell Disease: No Clotting Problems: No Psychologic Problems Schizophrenia: No Recreational Drug Use: No Bipolar Disorder: No Depression: Yes (TAKES MED) Anxiety: Yes (TAKES MED) Behavior Problems: No Self-Mutilation: No Attention Deficit Disorder: No Attention Deficit Hyperactivity Disorder: No Depression: No Post Traumatic Stress Disorder: Yes Eating Disorder: No Other Problems Hospitalization: No Autoimmune Disease: No Down Syndrome: No Autism: No Developmental Delay: No Cosmetic Surgery: No Shingles: No Falls: No Blood Transfusions: No Blood Transfusion Reaction: No Anesthesia Reactions: No Organ Transplant: No Chemotherapy: No Radiation Therapy: No Hyperbaric Therapy: No MRSA: No VRSA: No Vancomycin-Resistant Enterococci: No Human Immunodeficiency Virus (HIV): No Chicken Pox: No Measles: Yes Mumps: Yes Rubella (Lithuanian Measles): No Pertussis: No Klebsiella Pneumoniae Carbapenemase Producing Bacteria: No Clostridium Difficile: No Hepatitis A: No Hepatitis B: No Hepatitis C: No Communicable Disease: No Cancer: No Cervical Cancer: No Lung Cancer: No Ovarian Cancer: No Surgical History Angioplasty: No Appendectomy: No Bariatric Surgery: No Breast Surgery: No Cancer Surgery: No Carotid Endarterectomy: No Cholecystectomy: No Colectomy: No Colostomy: No Coronary Artery Bypass Graft: No Valve Replacement: No Herniorrhaphy: No Total Hip Replacement: No Total Knee Replacement: No Hysterectomy: No Pacemaker: No Sinus Surgery: No Splenectomy: No TAHBSO-Total Abdominal Hysterectomy: No Thyroidectomy: No Ureter Stent: No Subjective Visit Visit for: follow up visit, knee and x-rays Immunization / Flu Flu Vaccine in the Last 12 Months: Yes Flu Vaccine Exclusion Criteria: Already Received History of Present Illness Chief complaint: LEFT KNEE PAIN Date of injury / onset of symptoms: 8 MONTHS Personal History Occupation: RETIRED Red flag PMH: none BMI Counceling provided: Yes Additional comments: HISTORY OF PRESENT ILLNESS I, Lucas Felipe, have obtained verbal consent from the patient, to be recorded during this encounter which may include, but not limited to, medical history, examination, treatment plans, and relevant health information.? Patient was informed that recording will be read and reviewed by myself before inclusion in the medical chart. The patient presents today with left knee pain that she has had for years. She has undergone 3 arthroscopic procedures on her left knee for meniscal tears, [address] Ng and 1 by another physician. Her pain worsened approximately 8 months ago. Despite experiencing severe inflammation in the past, which was managed with blistering treatments, she continues to experience significant pain in her left knee, particularly when attempting to rise from a kneeling position, describing a sensation of disconnection. She also reports occasional right knee pain, although it is less severe than the left. She has not had recent injections or physical therapy within the last 8 months. Her anti-inflammatory medications are still working. She describes her pain as starting in one area and then spreading across the entire front of her knee. She has a history of arthritis in her joints and has undergone multiple surgeries, including a hip replacement. 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 She underwent an EMG test but is uncertain whether it was conducted for her back or leg. Her back pain is currently more limiting than her knee pain. She has received numerous injections over the years, including gel injections, which provided minimal relief. PAST SURGICAL HISTORY: Hip replacement 3 meniscus tear repairs on the left knee Meniscus surgery on both knees Pain Pain level (0-10): 6 Pain location: anterior Pain quality: aching Pain timing: increases with activity and stairs Associated signs & symptoms: stiffness Ambulatory data Ambulatory device: none Treatments Number of previous injections: 0 Improvement with previous injections: No Number of Physical Therapy sessions: 0 Improvement with PT: No Improvement with NSAIDS: yes Review of Systems Review of Systems: All systems negative unless otherwise noted in HPI.
[2025-07-24 09:17] VITALS: BP 116/77; PULSE 79; RESP 18; TEMP 36.4; O2SAT 96; BMI 29.9
== END 2025-07-24 09:33 | disposition home or self-care (01) ==
PROVIDERS: Supervising Provider Orthopaedic Surgery Adult Reconstructive Orthopaedic Surgery; Visit Provider Orthopaedic Surgery Adult Reconstructive Orthopaedic Surgery
DX: M17.12 Unilateral primary osteoarthritis, left knee (principal); M25.562 Pain in left knee; M25.561 Pain in right knee; I10 Essential (primary) hypertension
CPT/HCPCS: 20610; 99213; J1010; J2795; G0463

== ENCOUNTER → 2025-07-24 | Outpatient (CLI) | payer BC, SELFPAY ==
[2025-07-24 10:50] LABS: Albumin, Serum 4.4 gm/dL (3.4-4.8); Anion Gap 8 (7-16); BUN/Creatinine Ratio 15 Ratio (12-20); Blood Urea Nitrogen 12 mg/dL (9-23); Calcium 9.3 mg/dL (8.3-10.6); Calcium (Corrected) 9.3 mg/dL (8.5-10.1); Carbon Dioxide 29.0 mMol/L (20.0-31.0); Chloride 106 mMol/L (98-107); Creatinine (Component) 0.8 mg/dL (0.6-1.3); Glucose 109 mg/dL (74-106); Osmolality,Calculated 285 (275-295); Phosphorous 4.5 mg/dL (2.4-5.1); Potassium 4.2 mMol/L (3.4-5.1); Sodium 143 mMol/L (136-145); eGFR > 60 See Note
== END | disposition home or self-care (01) ==
PROVIDERS: PCP Family Medicine; Referring Provider Family Medicine; Visit Provider Family Medicine
DX: E11.65 Type 2 diabetes mellitus with hyperglycemia (principal); I10 Essential (primary) hypertension
CPT/HCPCS: 36415; 80069

== ENCOUNTER → 2025-07-26 | Outpatient (CLI) | payer BC, SELFPAY ==
--- NOTE | 2025-07-26 12:00 | XR_ITS ---
EXAMINATION: Bilateral breast MRI pre and post contrast Date and time: July 26, 2025, 1228 hours, comparison mammogram May 19, 2025 INDICATIONS: Left breast discharge 2 months, family history breast cancer, also history bloody breast discharge left breast TECHNIQUE AND FINDINGS: Bilateral breast MRI images pre and post 70 cc gadolinium Scattered areas of fibroglandular density Minimal background breast enhancement 10 x 4 mm circumscribed nodule outer left breast, likely corresponding to the 2:00 nodule 8 x 7 mm on left breast mammogram May 17, 2025 No axillary pathologic lymphadenopathy No chest wall mass No focal area of rapid wash-in and rapid washout on the contrast images IMPRESSION: BI-RADS Category 0: Incomplete: Need additional imaging evaluation Given the patient's history of bloody left breast discharge, recommend left breast ductogram follow-up
== END | disposition home or self-care (01) ==
PROVIDERS: PCP Family Medicine; Referring Provider Family Medicine; Visit Provider Family Medicine
DX: N64.52 Nipple discharge (principal); R92.8 Other abnormal and inconclusive findings on diagnostic imaging of breast
CPT/HCPCS: 77049; A9577; C8908